=== PATIENT | female | born 1945 | race Caucasian/White ===

== ENCOUNTER 2019-06-26 09:45 | Day surgery (SDC) | payer MEDICARE ==
[~2019-06-26 09:45] MED LIST: ACETAMINOPHEN 1,000 MG/100 ML BTL IVPB ONE
[2019-06-26] MEDS ORDERED: ONDANSETRON HCL IV 4 MG/2 ML VIAL IVP ONE (09:46)
[2019-06-26] MEDS ORDERED: MORPHINE SULFATE (PACU ONLY) 4 MG/ML VIAL IVP ONE (09:46)
[2019-06-26] MEDS ORDERED: SEVOFLURANE 250 ML INH ONE (09:46)
[2019-06-26] MEDS ORDERED: LIDOCAINE 2% MDV (20MG/ML) 20ML VIAL IV ONE (09:46)
[2019-06-26] MEDS ORDERED: FENTANYL PF 100MCG/2ML VIAL IV ONE (09:46)
[2019-06-26] MEDS ORDERED: MIDAZOLAM HCL 2MG/2ML VIAL IV ONE (09:46)
[2019-06-26] MEDS ORDERED: KETOROLAC 30 MG/ML VIAL IVP ONE (09:46)
[2019-06-26] MEDS ORDERED: PROPOFOL 10 MG/ML VIAL IV ONE (09:46)
[2019-06-26] MEDS ORDERED: RINGERS SOLUTION,LACTATED 1,000 ML IV ONE (10:20)
[2019-06-26] MEDS ORDERED: BUPIVACAINE 0.25% W/EPI MPF 30ML VIAL SQ ONE (11:36)
[2019-06-26] MEDS ORDERED: MORPHINE SULFATE 5 MG/ML VIAL IVP ONE ×2 (12:10→12:16)
[2019-06-26] MEDS ORDERED: HYDROCODONE/APAP 5/325MG TABLET PO ONE (12:39)
--- NOTE | 2019-06-27 11:20 | Operative Note ---
DATE OF SURGERY: 06/26/2019 SURGEON: Billy Lawson DO PREOPERATIVE DIAGNOSES: 1. Torn lateral meniscus of the left knee. 2. Chondromalacia of the left knee. POSTOPERATIVE DIAGNOSES: 1. Torn lateral meniscus of the left knee. 2. Osteoarthritis of the left knee. OPERATION: 1. Arthroscopic partial lateral meniscectomy, left knee. 2. Arthroscopic chondroplasty of the patella and trochlea, left knee. DESCRIPTION OF PROCEDURE: This 74-year-old female was taken to the operating room and placed in the supine position on the operating room table. The left lower extremity was elevated, exsanguinated, and the tourniquet inflated to 300 mmHg. Arthroscopic knee amaral applied. Left knee prepped with Hibiclens and draped in the usual sterile fashion. 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 This lesion was approximately 1.5 to 2 cm in greatest dimension with grade 3 changes noted surrounding this lesion. There was no normal articular cartilage. The trochlea also demonstrated grade 3 changes noted throughout the entire articulating surface. There was an area of grade 3 change noted at about the level of the meniscal rest just above the weightbearing surface of the medial femoral condyle. This was smoothed with a rotating shaver. The medial and lateral gutters were examined and found to be normal. The medial compartment entered and probed and found to be normal. The intracondylar notch was seen to be normal. The lateral compartment was entered, and a complex tear of the lateral meniscus was present with a tear of the anterior horn which extended all the way around to the posterior horn involving the entire meniscus. The anterior and posterior roots were still intact. The basket forceps and rotating shaver were used to resect back to stable meniscus. This was then re-probed and confirmed to be stable. The wound then irrigated with lactated Ringer's solution. It was suctioned. The instruments were removed. The portals infiltrated with 0.25% Marcaine with epinephrine. Sterile dressings applied, tourniquet and knee amaral released, and the patient taken to the recovery room in satisfactory condition. 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 There was also degenerative change of the trochlea grade 3. A complex tear of the entire lateral meniscus was present as described above. MTDD
== END 2019-06-26 13:00 | disposition home or self-care (01) ==
LOC: SUR 09:45
PROVIDERS: ATTEND Orthopaedic Surgery
DX: S83.272A Complex tear of lateral meniscus, current injury, left knee, initial encounter (principal); M94.262 Chondromalacia, left knee; M17.12 Unilateral primary osteoarthritis, left knee; G40.909 Epilepsy, unspecified, not intractable, without status epilepticus; J44.9 Chronic obstructive pulmonary disease, unspecified; R94.31 Abnormal electrocardiogram [ECG] [EKG]
CPT/HCPCS: 29881; 01400; J1885; J2405; J3010; J2270; J7120